=== PATIENT | male | born 2000 ===

== ENCOUNTER 2022-05-12 19:28 | Emergency (ER) | payer SELFPAY ==
[2022-05-12 21:24] LABS: CORONAVIRUS COVID-19 NAA NEGATIVE (NEGATIVE); RESPIRATORY SYNCYTIAL VIR NAA NEGATIVE (NEGATIVE)
[2022-05-12] MEDS ORDERED: predniSONE 20 MG Tab PO ONE (21:41)
[2022-05-12] MEDS ORDERED: Benzonatate 100 MG Cap PO ONE (21:42)
[2022-05-12] MEDS ORDERED: Albuterol/Ipratropium 3.0-0.5 MG/3 ML Neb Soln NEB ONE (21:46)
== END 2022-05-12 22:03 | disposition home or self-care (01) ==
LOC: DL.ED 19:28
DX: J45.21 Mild intermittent asthma with (acute) exacerbation (principal); Z20.822 Contact with and (suspected) exposure to COVID-19
CPT/HCPCS: 0241U; 71046; 94640; 99283; A9270; J7512; J7620-GY